=== PATIENT | female | born 1960 ===

== ENCOUNTER 2018-03-10 07:44 | Outpatient (CLI) | payer OTHER ==
[~2018-03-10 07:44] MED LIST: ATENOLOL25 MG; ATENOLOL25 MG PO; CORTISPORIN EAR10 M2 OT; HYZAAR 50/12.51 TAB; SYNTHROID88 MCG; SYNTHROID88 MCG PO
== END 2018-03-10 07:48 | disposition home or self-care (01) ==
LOC: LAB 07:44
DX: D64.89 Other specified anemias (principal); E11.9 Type 2 diabetes mellitus without complications; E78.2 Mixed hyperlipidemia; E03.8 Other specified hypothyroidism

== ENCOUNTER → 2018-06-02 07:29 | Outpatient (CLI) | payer OTHER | END | disposition home or self-care (01) | LOC: LAB 07:29 | DX: C73 Malignant neoplasm of thyroid gland (principal); E89.0 Postprocedural hypothyroidism ==